=== PATIENT | female | born 1985 | race Asian ===

== ENCOUNTER 2017-03-26 09:50 | Emergency (ER) | payer OTHER ==
[~2017-03-26] VITALS: Ht 172.7 cm; Wt 110.4 kg
[2017-03-26] MEDS ORDERED: PREN1TAB79 PO (10:21)
[2017-03-26 11:02] LABS: HEMATOCRIT 35.9 % (34.6-47.8); HEMOGLOBIN 11.5 g/dL (11.7-16.4)
[2017-03-26 11:13] LABS: ASPARTATE AMINO TRANSFERASE 14 U/L (15-37); BLOOD UREA NITROGEN 9 mg/dL (7-18)
[2017-03-26 12:29] VITALS: BP 100/66
== END 2017-03-26 13:50 | disposition home or self-care (01) ==
LOC: ED 12:40
DX: O26.891 Other specified pregnancy related conditions, first trimester (principal); M54.5 Low back pain; Z3A.01 Less than 8 weeks gestation of pregnancy
CPT/HCPCS: 36415; 76801; 80053; 81001; 84702; 85025; 87086; 87147; 99285